=== PATIENT | male | born 1945 | race Caucasian/White ===

== ENCOUNTER 2023-03-17 11:38 | Emergency (ER) | payer SELFPAY ==
[~2023-03-17] VITALS: Ht 182.9 cm; Wt 86.3 kg
[~2023-03-17 11:38] MED LIST: ASPIRIN81 MG PO; CARBIDOPA/LEVOD1 TA1 PO; CIPROFLOXACN500 MG PO; COREG3.125 MG PO; FERROUS SULF325 M1 PO; JANUMET1 TAB PO; K-DUR/KLOR-CON10 MEQ PO; LASIX 20 MG TAB20 MG PO; LISINOPRIL5 MG PO; LORTAB 5/3255 MG PO; NEURONTIN300 MG PO; PRADAXA150 MG PO; PRAVACHOL40 MG PO; TYLENOL325 MG PO; ULTRAM50 M1 PO; ZITHROMAX250 MG PO
[2023-03-17 13:45] VITALS: BP 123/60
[2023-03-17 14:00] VITALS: BP 131/75
[2023-03-17 14:12] LABS: BASO% 1.9 % (0-3); EOS% 8.4 % (0-8); IMMATURE GRANULOCYTES 0.3 % (0.0-5.0); LYMPH% 24.6 % (15-41); MEAN CORPUSCULAR HGB 28.6 pG CALC (26.0-32.0); MEAN CORPUSCULAR HGB CONC 30.7 g/dL CAL (32.0-36.0); MONO% 16.5 % (2-13); NEUT# 1.49 thou/uL (1.82-7.42); NEUT% 48.3 % (42-76); RED BLOOD COUNT 2.9 mill/uL (4.70-6.10); RED CELL DISTRI WIDTH 16.7 % (11.5-15.5)
[2023-03-17 14:13] LABS: HEMOGLOBIN 8.3 g/dl (14.0-18.0); MEAN CELL VOLUME 93.1 fL CALC (80.0-100.0)
[2023-03-17 14:16] VITALS: BP 127/66
[2023-03-17 14:25] LABS: ALBUMIN 3.7 g/dL (3.2-5.0); CREATININE 1.4 mg/dL (0.7-1.3); POTASSIUM 4.3 mmol/l (3.5-5.1)
[2023-03-17 14:26] LABS: BILIRUBIN, TOTAL 2.2 mg/dL (0.2-1.3); TOTAL PROTEIN 7.9 g/dL (6.3-8.2)
[2023-03-17 14:31] VITALS: BP 129/90
[2023-03-17 14:53] LABS: URINE BILIRUBIN - DIPSTICK Negative (NEGATIVE); URINE BLOOD DIPSTICK Trace-lysed (NEGATIVE); URINE COLOR Yellow; URINE GLUCOSE - DIPSTICK Negative (NEGATIVE); URINE KETONE Negative (NEGATIVE); URINE LEUK ESTERASE Negative (NEGATIVE); URINE NITRITE - DIPSTICK Negative (Negative); URINE PROTEIN - DIPSTICK Negative (NEG-TRACE); URINE SPECIFIC GRAVITY 1.015; URINE UROBILINOGEN - DIPSTICK 0.2 E.U./dL (0.2)
[2023-03-17 18:53] VITALS: BP 141/78
[2023-03-17 19:00] VITALS: BP 136/79
[2023-03-17] MEDS ORDERED: LASIX 40 MG TAB40 MG PO (20:11)
== END 2023-03-17 20:00 | disposition left against medical advice (07) | DRG 292 ==
LOC: ED 11:38
PROVIDERS: Nurse Practitioner
DX: I50.9 Heart failure, unspecified (principal); R18.8 Other ascites; I71.40 Abdominal aortic aneurysm, without rupture, unspecified; E11.9 Type 2 diabetes mellitus without complications; Z53.29 Procedure and treatment not carried out because of patient's decision for other reasons
CPT/HCPCS: Q9967